=== PATIENT | female | born 1965 | race Caucasian/White ===

== ENCOUNTER 2022-01-27 18:59 | Emergency (ER) | payer BC | END 2022-01-27 21:50 | disposition home or self-care (01) | LOC: CSHERS 18:59 | DX: S00.83XA Contusion of other part of head, initial encounter (principal); S60.221A Contusion of right hand, initial encounter; I10 Essential (primary) hypertension; E03.9 Hypothyroidism, unspecified; W19.XXXA Unspecified fall, initial encounter; W22.8XXA Striking against or struck by other objects, initial encounter; Y93.K1 Activity, walking an animal | CPT/HCPCS: 70450; 70486; 76377 ==